=== PATIENT | male | born 1980 | race Two or more races ===

== ENCOUNTER 2019-05-11 13:13 | Emergency (ER) | payer BC ==
[~2019-05-11] VITALS: Ht 175.3 cm; Wt 77.1 kg
[2019-05-11 13:19] VITALS: BP 131/77
--- NOTE | 2019-05-11 14:25 | PHYS DOC ---
Past Medical History Past Medical History: No Pertinent History Past Surgical History: No Surgical History Alcohol Use: None Drug Use: None Adult General Chief Complaint Chief Complaint: OTHER COMPLAINTS [facility] Patient is a 38 year old male who presents with intermittent right sided headache for the past 3-4 days. Patient reports he has a pain near right occipital region which comes on on and off throughout the day, reports that it stays for little while then goes away. States he occasionally feels dizzy and when he does feel dizzy, he feels nauseous. Denies any current nausea, d izziness. Denies any trauma, denies any changes in his vision. States he has never had these problems in the past. Denies any medical problems. Denies any hearing changes. States he has not tried to take any medications for this. Review of Systems Review of Systems Constitutional: Denies fever or chills [] Eyes: Denies change in visual acuity, redness, or eye pain [] HENT: Denies nasal congestion or sore throat [] Respiratory: Denies cough or shortness of breath [] Cardiovascular: No additional information not addressed in HPI [] GI: Denies abdominal pain, nausea, vomiting, bloody stools or diarrhea [] : Denies dysuria or hematuria [] Musculoskeletal: Denies back pain or joint pain [] Integument: Denies rash or skin lesions [] Neurologic: Reports intermittent headache, denies focal weakness or sensory changes [] Endocrine: Denies polyuria or polydipsia [] All other systems were reviewed and found to be within normal limits, except as documented in this note. Allergies Allergies Allergies Coded Allergies Type Severity Reaction Last Updated Verified No Known Drug Allergies 05/11/19 No Physical Exam Physical Exam Constitutional: Well developed, well nourished, no acute distress, non-toxic appearance. [] HENT: Normocephalic, atraumatic, bilateral external ears normal, Right with increased fluid behind TM. oropharynx moist, no oral exudates, nose normal. [] Eyes: PERRLA, EOMI, conjunctiva normal, no discharge. [] Neck: Normal range of motion, no tenderness, supple, no stridor. [] Cardiovascular:Heart rate regular rhythm, no murmur [] Lungs & Thorax: Bilateral breath sounds clear to auscultation [] Abdomen: Bowel sounds normal, soft, no tenderness, no masses, no pulsatile masses. [] Skin: Warm, dry, no erythema, no rash. [] Back: No tenderness, no CVA tenderness. [] Extremities: No tenderness, no cyanosis, no clubbing, ROM intact, no edema. [] Neurologic: Alert and oriented X 3, normal motor function, normal sensory functi on, no focal deficits noted. [] Psychologic: Affect normal, judgement normal, mood normal. [] Current Patient Data Vital Signs Vital Signs Date Time Temp Pulse Resp B/P (MAP) Pulse Ox O2 Delivery O2 Flow Rate FiO2 05/11/19 13:19 98.7 66 20 131/77 (95) 98 Room Air 98.7 EKG EKG [] Radiology/Procedures Radiology/Procedures The visualized paranasal sinuses appear clear. The orbits are unremarkable. The temporal bones are unremarkable. The calvarium reveals no suspicious lesions. IMPRESSION: 1. No acute intracranial findings. Electronically signed by: Edgardo Carrillo MD (05/11/2019 2:50 PM) [facility][] Course & Med Decision Making Course & Med Decision Making Pertinent Labs and Imaging studies reviewed. (See chart for details) [Discussed findings with patient and spouse with symptoms similar to cluster headache or sinus issues. 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 Discussed use of decongestants, discussed use of tylenol/ibuprofen for discomfort.] Dragon Disclaimer Dragon Disclaimer This electronic medical record was generated, in whole or in part, using a voice recognition dictation system. Departure Departure Impression: Primary Impression: Cluster headache Additional Impression: Allergic rhinitis Disposition: 01 HOME, SELF-CARE Condition: GOOD Referrals: NO PCP (PCP) Patient Instructions: Sinus Headache, [id number] Additional Instructions: Usted puede donell ibuprofeno 400 mg cada 6 hora o acetaminophen 500 - 1000 mg cada 6 horas Tambien deberia donell Zyrtec o Claritin cada timur, marianne tableta de 10 mg Sigue con sosa medico en clinica si continua con raudel problemas. Problem Qualifiers Primary Impression: Cluster headache Headache chronicity pattern: episodic headache Intractability: not intractable Qualified Codes: G44.019 - Episodic cluster headache, not intractable Additional Impression: Allergic rhinitis Allergic rhinitis trigger: unspecified Allergic rhinitis seasonality: seasonal Qualified Codes: J30.2 - Other seasonal allergic rhinitis KARLA ROBERTS APRN May 11, 2019 14:25
--- NOTE | 2019-05-11 14:52 | RAD ---
EXAM: CT HEAD WITHOUT CONTRAST. HISTORY: Right headache. TECHNIQUE: Computed tomography of the head was performed without intravenous contrast. COMPARISON: None. FINDINGS: There is no intracranial hemorrhage. Frost-white differentiation is preserved. The ventricles are normal in size and position. Asymmetry of the lateral ventricles with the left slightly larger than the right is a variant of normal. The visualized paranasal sinuses appear clear. The orbits are unremarkable. The temporal bones are unremarkable. The calvarium reveals no suspicious lesions. IMPRESSION: 1. No acute intracranial findings. *One or more of the following individualized dose reduction techniques were utilized for this examination: 1. Automated exposure control. 2. Adjustment of the mA and/or kV according to patient size. 3. Use of iterative reconstruction technique. Electronically signed by: Edgardo Carrillo MD (05/11/2019 2:50 PM) [facility]
== END 2019-05-11 16:05 | disposition home or self-care (01) ==
LOC: ER 13:13
DX: G44.019 Episodic cluster headache, not intractable (principal); J30.2 Other seasonal allergic rhinitis; R42 Dizziness and giddiness; R11.0 Nausea
CPT/HCPCS: 70450; 99284-25